=== PATIENT | female | born 1960 | race Caucasian/White ===

== ENCOUNTER → 2017-08-18 | Outpatient (CLI) | payer OTHER ==
--- NOTE | 2017-08-18 09:14 | KCIC ---
Examination: 3 views left ankle HISTORY: History of left ankle pain status post injury 2 months back COMPARISON: None available FINDINGS: The ankle mortise appears intact. There is a well-formed bone density identified distal to the medial malleolus could be unfused ossicle or age-indeterminate avulsion fracture. No significant soft tissue swelling identified about the ankle joint. Impression: 1. Well-formed bone density identified distal to the medial malleolus could be unfused ossicle or age indeterminate avulsion fracture. Electronically signed by: David Zaldivar MD (08/18/2017 9:11 AM) [id number]
== END | disposition home or self-care (01) ==
LOC: KCIC 08:43
DX: S93.402D Sprain of unspecified ligament of left ankle, subsequent encounter (principal); X58.XXXD Exposure to other specified factors, subsequent encounter
CPT/HCPCS: 73610